=== PATIENT | female | born 1970 | race African-American/Black ===

== ENCOUNTER → 2019-03-07 08:21 | Outpatient (CLI) | payer OTHER, SELFPAY ==
[2019-02-27 14:40] VITALS: BMI 26.2
--- NOTE | 2019-03-07 08:45 | CT_ITS ---
STUDY: CT MAXILLOFACIAL SINUSES REASON FOR EXAM: Female, 48 years old. Sinus congestion. RADIATION DOSAGE (If Supplied By Facility): CTDIvol = ( 33.06 ) mGy, DLP = ( 788.40 ) mGycm TECHNIQUE: The patient was scanned in a multi detector CT scanner. High resolution axial imaging was performed without the administration of intravenous contrast material. Sagittal and coronal images were reconstructed. Individualized dose optimization techniques were used for this CT. COMPARISON: None. FINDINGS: FRONTAL SINUSES: Opacification of the left frontal sinus. ETHMOIDAL SINUSES: Opacification of the left ethmoid sinus with the erosion of the bony septation. MAXILLARY SINUSES: Complete opacification of the left maxillary sinus with the erosion of the medial wall of the sinus as well as the lateral wall. Mucosal thickening of the left maxillary sinus. SPHENOIDAL SINUSES: Opacification of the left sphenoid sinus. Opacification of the left nasal cavity. This extends posteriorly into the nasopharynx with the compromise of the airway. Normal bilateral middle turbinates. There is hypertrophy of the right inferior nasal turbinate. Normal midline nasal septum. There is patency of the bilateral nasal airways. The visualized osseous structures are normal. The visualized bilateral orbital contents are normal. CT/Sinus/Facial Bone IMPRESSION: Opacification of the left frontal, sphenoid, ethmoid and maxillary sinuses with a soft tissue opacification of the left nasal fossa. The soft tissue density in the left nasal fossa extends posteriorly with narrowing of the nasopharynx. Mild degree of mucosal thickening of the right maxillary sinus and the hypertrophy of the right inferior turbinate. Electronically Signed: Cole Rodriguez, at 10:04 EDT , Service support ,
[2019-03-07 09:14] LABS: Absolute Lymphocyte Count 1.35 X10^3/uL (0.83-4.51); Absolute Neutrophil Count 3.6 X10^3/uL (2.0-7.7); Basophil# 0.09 X10^3/uL; Basophil% 1.6 % (0-1); Eosinophil# 0.09 X10^3/uL; Eosinophils% 1.6 % (0-5); Hematocrit 37.1 % (37-47); Lymphocyte # 1.35 X10^3/ul (4.0); Lymphocyte % 24.4 % (19-41); Mean Corp Hgb Conc 29.6 g/dL (32-36); Mean Corpuscular Hgb 24.2 pg (27.0-32.0); Mean Corpuscular Volume 81.5 fL (81-99); Mean Platelet Vol. 10.1 fl (6.2-12.0); Monocyte# 0.37 X10^3/uL; Monocyte% 6.7 % (0-10); NRBC Flagged by Analyzer 0 % (0-5); Neutrophil # 3.62 X10^3/uL (2.7-7.7); Neutrophil % 65.3 % (47-70); Platelet Count 310 K/mm3 (150-450); RBC Distribution Width CV 13.6 % (11.6-14.6); RBC Distribution Width SD 40.3 fl (35.1-43.9); Red Blood Count 4.55 M/mm3 (4.2-5.4); White Blood Count 5.5 K/mm3 (4.4-11.0)
[2019-03-07 09:20] LABS: Internal QC Validated? YES +Cl - CLEAR BKGD; Pregnancy, Urine Negative Negative
[2019-03-07 09:46] LABS: Anion Gap 7 (5-15); BUN 8 mg/dL (7-18); BUN/Creat Ratio 9.6 RATIO (10-20); Calcium,Total 8.4 mg/dL (8.5-10.1); Chloride 103 mmol/L (98-107); Creatinine, Serum 0.83 mg/dL (0.55-1.02); EST Glomerular Filtration Rate 78 mL/min (>60); Est Glom Filt Rate - Afr Amer 95 mL/min (>60); Glucose 333 mg/dL (74-106); Potassium 4.2 mmol/L (3.5-5.1); Sodium Level 134 mmol/L (136-145)
--- NOTE | 2019-03-23 13:24 | MRI_ITS ---
STUDY: MRI ORBITS WITH AND WITHOUT CONTRAST REASON FOR EXAM: Female, 48 years old. Malignant melanoma nasal cavity. Biopsy 2 weeks ago TECHNIQUE: Standardized fat and water weighted pulse sequences were obtained in all 3 orthogonal planes, pre-and post contrast administration. IV Dotarem 15 was administered for the contrast portion of the examination. COMPARISON: None. FINDINGS: There appears to have been a median antrectomy on the left. The left nasal airway now appears relatively clear compared to the previous exam. There is improved aeration of the left maxillary sinus. There are still heterogeneous lobulated complex cystic collections along the left lateral maxillary sinus. This extends to the orbital apex and appears to envelop the cavernous carotid artery. There is avid peripheral enhancement. Fluid is noted within the left frontal and ethmoid air cells. Normal bilateral globes. Normal bilateral optic nerve sheath complexes and optic nerves. Normal bilateral intraconal and extraconal spaces. Normal bilateral extraocular muscles. Normal optic chiasm and post-chiasmatic tracts. Normal sella turcica, pituitary gland, infundibular stalk, and hypothalamus. Normal bilateral cavernous sinuses. Normal tectal plate and pineal gland. Normal flow voids within the major intracranial circulation suggesting patency by spin echo criteria. Normal size of the ventricles and extra-axial spaces for the patient's age. Normal white matter tracts of the supratentorial brain. Normal bilateral basal ganglia. Normal thalami. There is no extra-axial fluid accumulation. Normal midbrain, miranda and medulla. Normal cerebellum. Normal basal cisterns. MRI/Orbit Face Neck W/WO Contrast IMPRESSION: Apparent interval debulking of left maxillary and sinonasal mass. Residual tumor is not excluded. Left frontal and ethmoidal sinusitis. Electronically Signed: David Thompson MD at 17:21 EDT , Service support ,
--- NOTE | 2019-03-23 13:24 | MRI_ITS ---
STUDY: MRI BRAIN WITH AND WITHOUT CONTRAST REASON FOR EXAM: Female, 48 years old. Malignant melanoma TECHNIQUE: Standardized multiplanar fat and water weighted pulse sequences were obtained. IV Dotarem 15 was administered for the contrast portion of the examination. COMPARISON: None. FINDINGS: Normal size of the ventricles and extra-axial spaces for the patient's age. Normal white matter tracts of the supratentorial brain. There is no evidence for recent intracranial ischemia or other cause of cytotoxic edema on diffusion weighted imaging (DWI). Normal bilateral basal ganglia. Normal thalami. There is no extra-axial fluid accumulation. Normal flow voids within the major intracranial circulation suggesting patency by spin echo criteria. Normal venous enhancement. There is no enhancing intra-axial or extra-axial abnormality. Normal sella turcica, pituitary gland, infundibular stalk, optic chiasm and hypothalamus. Normal tectal plate and pineal gland. Normal midbrain, miranda and medulla. Normal cerebellum. Normal basal cisterns. Normal bilateral temporal bones. Normal bilateral internal auditory canals. No demonstrated orbital abnormality, within the constraints of a routine brain study. Left median antrectomy. Septated cystic changes and enhancement with mucosal thickening left lateral maxillary wall. Fluid left frontal and the ethmoid air cells. Normal calvarium and skull base. Normal visualized soft tissue structures. Normal visualized upper cervical spine. MRI/Brain W/WO Contrast IMPRESSION: Left-sided sinusitis and median antrectomy left maxillary sinus. Otherwise no intracranial disease. Electronically Signed: David Thompson MD at 21:24 EDT , Service support ,
== END ==
LOC: CT 08:29
PROVIDERS: Family Provider Otolaryngology; PCP Otolaryngology; Referring Provider Otolaryngology; Visit Provider Otolaryngology
DX: R22.0 Localized swelling, mass and lump, head (principal)
CPT/HCPCS: 36415; 70486; 80048; 81025; 83036; 85025

== ENCOUNTER 2019-03-10 07:30 | Day surgery (SDC) | payer OTHER, SELFPAY ==
[2019-02-27 14:40] VITALS: BMI 26.2
[2019-03-10] VITALS (11 sets, daily range): BP systolic 105–121; BP diastolic 69–90; PULSE 62–90; RESP 16–18; TEMP 36.1–36.6; O2SAT 99–100; BMI 28.0
--- NOTE | 2019-03-10 | IMM_PTH ---
PATIENT: CELIO BELL LOC: [facility] [place] U#:[id number] AGE/SX: 48/F ROOM: RE03/10/[address]: Dr. Archie Mg MD : 1970 BED: DIS: 03/10/2019 SPEC #: [id number] RECD: 03/13/19 11:47 STATUS: ANNIKA REQ #: [id number] DIANA: 03/10/19 00:[address]: Archie Mg DEPT: IMMUNOHISTOCHEMISTRY RECD BY: Elaine Man ENTERED: 03/13/19 11:49 SP TYPE: IMMUNO OTHR DR: No Primary Care Phys Tissues: B - Maxilla, NOS Procedures: CD45 (add) CK7 (add) Vimentin (add) Pankeratin (initial) MELAN-A (add) S-100 (add) PHYSICIAN & INSTITUTION [place] [address] SPECIMEN INFORMATION: Tissue Source: B - Left sinus contents, biopsy Clinical Info: Mass of nasal sinus; chronic sinusitis; nasal cavit disorder Specimen Number: [id number] CPT code: 35034, 74900 x5 METHODOLOGY: Deparaffinized sections of prefer/formalin-fixed tissue or PAP/DQ stained slides are incubated with monoclonal/polyclonal antibodies/oligonucleotide probes. Localization is made via biotin free immunoperoxidase method. Appropriate controls are performed and reacted as expected. Results on target cell population are indicated in the following table: RESULTS: ANTIBODY / CLONE RESULT Block B3 AE1-3 (AE1/AE3/PCK26) negative CK7 (OV-TL12/30) negative Vimentin (V9) positive Melan A (A103) positive S-100 (4C4.9) positive, focal CD45 (RP2/18) negative These tests were developed and their performance characteristics determined by [facility]. They may not have been cleared or approved by the U.S. Food and Drug Administration. The FDA has determined that such clearance or approval is not necessary. INTERPRETATION: B. Left sinus contents, biopsy: Consistent with malignant melanoma. This case has been reviewed in consultation with Dr. Aiken who concurs with the above diagnosis. SJ:tian 03/13/19
[2019-03-10 08:02] LABS: Internal QC Validated? YES +Cl - CLEAR BKGD; Pregnancy, Urine Negative Negative
[2019-03-10 08:46] LABS: Bedside Glucose 177 mg/dL (70-110)
[2019-03-10] MEDS: Lactated Ringers 1,000 ML 100 ML IV (08:48)
--- NOTE | 2019-03-10 09:15 | MASS_PTH ---
PATIENT: CELIO BELL LOC: [facility] [place] U#:[id number] AGE/SX: 48/F ROOM: RE03/10/[address]: Dr. Archie Mg MD : 1970 BED: DIS: 03/10/2019 SPEC #: [id number] RECD: 03/10/19 10:19 STATUS: ANNIKA REMable #: [id number] DIANA: 03/10/19 09:[address]: Archie Mg DEPT: SURGICAL PATHOLOGY RECD BY: Elaine Man ENTERED: 03/10/19 11:01 SP TYPE: Mass OTHR DR: Marielena Primary Care Phys Tissues: A - Maxilla, NOS B - Maxilla, NOS C - Maxilla, NOS Procedures: Frozen Section (charge) Surgery Specimen Level IV HEADER OPERATION: Endoscopic nasal sinus with left maxillary antrostomy PRE-OP DIAGNOSIS: Mass of nasal sinus; chronic sinusitis; nasal cavity disorder TISSUE SUBMITTED: A - Mass of left maxillary sinus for frozen section at 1012, B - Left sinus contents, C - Right nasal cavity tissue FROZEN SECTION DIAGNOSIS A. Mass of left maxillary sinus, biopsy: Poorly differentiated blue cell neoplasm. AM:tian 03/10/19 MICROSCOPIC DIAGNOSIS A. Mass of left maxillary sinus, biopsy: Poorly differentiated malignant neoplasm, consistent with malignant melanoma B. Left sinus contents: Consistent with malignant melanoma. See comment. C. Right nasal cavity tissue, biopsy: Fragments of respiratory mucosal tissue with mild chronic inflammation. SJ:tian 03/13/19 COMMENT B. Immunohistochemistry ([id number]) supports the above diagnosis. The specimen also shows fragments of bone. The tumor also invades into the bone. Molecular studies on the tumor can be performed if clinically indicated. Please notify the laboratory if they are needed. Flow cytometry study from [facility] shows insufficient viable and/or hematopoietic cells present. The complete report is viewable in patient's EMR. Correlation with clinical, radiologic findings and appropriate follow up are necessary. This case is discussed with Dr. Mg on 03/13/19. Case has been reviewed in consultation with Dr. Aiken who concurs with the above diagnosis. IDC:AM MICROSCOPIC DESCRIPTION Slides are reviewed. GROSS DESCRIPTION A - Received fresh for frozen section consultation labeled with the patient's name is a specimen designated mass of left maxillary sinus. The specimen consists of a reddish-alas fragment of soft tissue measuring 2 x 1.5 x 0.5 cm. Chief Radiology section is submitted for frozen section consultation. Chief Radiology portion is submitted for flow cytometric analysis. The remainder of the specimen is submitted in one more cassette (#2) for permanent section. / AM: 03/10/19 B -Received in fixative is one container labeled with the patient's name and designated left sinus contents. The specimen consists of multiple irregular and foamy fragments of red-alas soft tissue that in aggregate measure 15 x 3 x 3 cm. Chief Radiology portions are submitted in five cassettes. / AM: 03/10/19 C Received in fixative is one container labeled with the patient's name and designated right nasal cavity tissue. The specimen consists of multiple irregular fragments of light alas soft tissue that in aggregate measure 1.2 x 0.3 x 0.1 cm. The specimen is totally submitted in one cassette. / AM: 03/10/19 TC:0 [facility]: 04272 x3, 24014 ADDENDUM ADDENDUM ADDENDUM ADDENDUM ADDENDUM ADDENDUM 03/30/2019 10:37 ADDENDUM 03/30/2019 10:37 ADDENDUM 03/30/2019 10:37 ADDENDUM 03/30/2019 10:37 ADDENDUM 03/30/2019 10:37 BRAF ANALYSIS (MELANOMA) FROM [facility] RESULTS: No BRAF V600E or V600K mutations were detected in the provided specimen. Please see complete report in e-chart or EMR for complete details
[2019-03-10] MEDS: Oxymetazoline 0.05% 1 SPRAY SPRAY.BTL 15 SPRAY (09:54)
[2019-03-10] MEDS: Lidocaine 4% 50 ML Bottle (09:54)
--- NOTE | 2019-03-10 11:25 | PCM.OPRPT ---
Problem List (1) Localized swelling, mass, and lump of head Status: Acute (2) Chronic sinusitis Status: Chronic (3) Disease of nasal cavity and sinuses Status: Acute Report of Operation Date of Procedure: 03/10/19 Pre-Operative Diagnosis: Space occupying mass of left nasal cavity, chronic sinusitis Post-Operative Diagnosis: Same Surgery/Procedure Performed:: Left endoscopic maxillary antrostomy with removal of tissue, total ethmoidectomy with removal of tissue, sphenoidotomy with removal of tissue, Right endoscopic debridement of scar band and biopsy, sinus navigation Description of Surgical Findings:: Tasia is a 48-year-old female who presents for evaluation of chronic obstruction of the left nasal passage and numbness of the left cheek. She reports a history of prior excision of a nasal lesion in [facility] approximately 3 months ago after which time she had rapidly developed recurrent nasal obstruction on that side. MRI at that time showed a mass within the nasal cavity interpreted as inverting papilloma with mucus trapping in the maxillary ethmoid and sphenoid sinuses. Follow-up CT scan showed an invasive mass involving the anterior bony wall of the maxilla and space-occupying lesion of the maxillary ethmoid and sphenoid sinuses filling the nasal cavity on the left side. She was counseled regarding the above procedure for both alleviation of her obstruction complaints and biopsy for definitive evaluation and possible endoscopic resection and was eager to proceed. The risks, alternatives, potential complications, and benefits were discussed at length and any questions answered to the patient and/or caregiver's satisfaction. Witnessed informed consent was obtained in the office, and the patient and/or caregiver was agreeable to proceed. Procedure went as follows: The patient was identified in the preoperative holding and brought to the operating room, was placed under general anesthesia and intubated. When appropriate anesthesia was obtained, the navigational head gear was placed and confirmed to be operational in accordance with the car hostler's directions. Pledgets soaked in a 50-50 mixture of oxymetazoline and 4% topical lidocaine were placed to decongest the nasal mucosa. These were then removed and beginning on the left side using a 0? endoscope the nasal cavity examined. The insertion of the middle turbinate and uncinate process was then injected with 1% lidocaine with 100,000 epinephrine for a total of 2 mL, and a similar injection was then carried on the contralateral side. Upon returning to the left side, a large friable purplish mass was noted. This was then explored which is found to be arising from the lateral nasal wall and attached posteriorly. This was then debrided with the microdebrider to allow the vascular supply posteriorly to be additionally injected with 1% lidocaine with 100,000 epinephrine and controlled with suction cautery. This allowed for further visualization of the involvement of the maxillary sinus. More centrally the lesion was noted to be deeply melanotic and invaded through the bony medial wall inferior to the inferior nasal turbinate which was partially eroded by the mass. This was then resected with the use of through-cutting instruments. This allowed for the bulk of the mass to then be delivered from the maxillary sinus. The middle turbinate was noted to be completely obliterated by the mass. The remaining ethmoid cells were then removed taking the involved tumor with the specimen. Under navigational guidance the sphenoid sinus ostia was identified and noted to be filled with entrapped mucus due to the lesion which was invading the sinus ostia. This was then widely debrided with the microdebrider or intensely inflamed mucosa was noted. Hemostasis then achieved with application of topical oxymetazoline soaked pledgets followed by suction electrocautery. Using a 30 degree endoscope the maxillary sinus cavity was then examined. There is noted to be additional a lesion extending from the medial wall down towards the floor which was removed with a series of curved instruments. Frozen section evaluation of the mass showed a poorly differentiated blue cell tumor without further delineation. Clinically the lesion was highly suspicious and consistent with a mucosal melanoma. There were noted to be multiple sites along the posterior nasopharyngeal mucosa and septal mucosa of rounded purpleish raised lesions suggesting mucosal metastases. These were obliterated with suction cautery. During debulking the mass was noted to fill the nasopharynx posteriorly and this was additionally removed and sent as surgical specimen. This resulted in relief of the obstruction of the nasal cavity and removal of all visible mass. Attention was then turned to the right side where there is noted to be a broad soft tissue adhesion of the middle turbinate to the nasal septum. This was then sharply excised and sent as specimen as this was suspicious for possible tumor involvement to the contralateral side. Examination of the nasal passage revealed no other significant abnormalities and hemostasis was achieved with an oxymetazoline soaked pledget. FloSeal hemostatic agent was then placed on the left for hemostasis after removal of the pledgets. An NG tube was then placed to decompress the stomach and the patient returned to anesthesia, revived and extubated having tolerated the procedure well. Type of Anesthesia:: General Anesthesiologist: Brice Mccarthy Special Medications: none Specimen's removed: left sinus mass Drains: none Estimated Blood Loss (mL): 1000 mL Fluids Replaced: 2000 mL Grafts/Implants Used: none - Complications none - Admit VTE Documentation VTE Present on Admission: No VTE Mechan Device Prophylaxis: SCD's VTE Pharm Prophylaxis ordered?: No
--- NOTE | 2019-03-10 11:37 | DCINST_ITS ---
- Discharge Diagnoses Current Active Problems: Current Active and Chronic Problems (Last Updated 02/27/19 @ 14:42 by Elma Terrazas) Localized swelling, mass, and lump of head (Acute) Chronic sinusitis (Chronic) Disease of nasal cavity and sinuses (Acute) You will use the following diet at home:: Calorie/Carbohydrate Controlled (specify 1200, 1400, etc) Discharge Activity: Return to Normal Activity, May not drive while taking narcotic pain medications. Call your doctor if your incision/area has: Sudden Increased Bleeding Call your doctor if you observe: Fever of 101 or Higher, Uncontrolled pain Allergies/Adverse Reactions: Allergies No Known Allergies Allergy (Unverified 03/09/19 13:10) Medications to take at Discharge Insulin Detemir [Levemir (BKC)] 20 units SUBCUT DAILY 03/09/19 Metformin HCl 1,000 mg PO BID 03/09/19 Orders to be completed after discharge: Hemoglobin A1c Time Frame: 03/09/19, Facility: [facility], Location: Laboratory Primary Care Physician: Care Physician,No Primary [Primary Care Provider] - Test Results: Test results from this visit will be discussed in further detail at your follow- up appointment, if applicable. Please Follow Up With: Archie Mg MD When: 2 weeks
[2019-03-10 12:31] LABS: Bedside Glucose 130 mg/dL (70-110)
== END 2019-03-10 13:43 | disposition home or self-care (01) ==
LOC: SDC 07:31 → AC 07:32
PROVIDERS: Referring Provider Otolaryngology; Visit Provider Otolaryngology
PROC: (CPT 31237; principal; 2019-03-10 08:45)
DX: J32.0 Chronic maxillary sinusitis (principal); J34.89 Other specified disorders of nose and nasal sinuses; E11.9 Type 2 diabetes mellitus without complications; Z79.4 Long term (current) use of insulin
CPT/HCPCS: 00160; 31237; 31259; 31267; 81025; 82962; 88305; 88331; 88341; 88342; J7120; J2405

== ENCOUNTER → 2019-03-23 13:05 | Outpatient (CLI) | payer OTHER, SELFPAY ==
[2019-03-20 14:37] VITALS: BMI 26.5
== END ==
LOC: MRI 13:07
PROVIDERS: Referring Provider Internal Medicine Hematology & Oncology; Visit Provider Internal Medicine Hematology & Oncology
DX: J34.89 Other specified disorders of nose and nasal sinuses (principal)
CPT/HCPCS: 70543; 70553; A9575

== ENCOUNTER → 2019-04-21 09:25 | Outpatient (CLI) | payer OTHER, SELFPAY ==
[2019-04-06 13:55] VITALS: BMI 26.0
[2019-04-21 08:38] VITALS: BMI 27.0
[2019-04-21 10:37] LABS: Estradiol 89.3 pg/mL; Follicle Stimulating Hormone 7.2 mIU/mL; Free T3 2.1 pg/mL (2.18-3.98); Luteinizing Hormone 5.7 mIU/mL; Thyroid Stim Hormone (TSH) 0.67 uIU/mL (0.358-3.74)
[2019-04-24 16:22] LABS: Adrenocorticotropic Hormone 21.8 pg/mL (7.2-63.3); Insulin Like Growth Factor 109 ng/mL (57-195)
== END ==
PROVIDERS: Referring Provider Internal Medicine Endocrinology, Diabetes & Metabolism; Visit Provider Internal Medicine Endocrinology, Diabetes & Metabolism
DX: E23.7 Disorder of pituitary gland, unspecified (principal)
CPT/HCPCS: 36415; 82024; 82533; 82670; 83001; 83002; 84305; 84439; 84443; 84481

== ENCOUNTER 2019-04-25 13:28 | Outpatient (RCR) | payer OTHER, SELFPAY ==
[2019-04-06 13:55] VITALS: BMI 26.0
[2019-04-24 12:39] VITALS: BMI 26.6
[2019-04-25 12:03] VITALS: BMI 26.9
== END 2019-05-20 23:59 ==
LOC: NS 13:28
PROVIDERS: Visit Provider Student in an Organized Health Care Education/Training Program
DX: Z71.3 Dietary counseling and surveillance (principal); E11.9 Type 2 diabetes mellitus without complications; C30.0 Malignant neoplasm of nasal cavity
CPT/HCPCS: 97802; 97803

== ENCOUNTER 2019-06-02 14:00 | Outpatient (RCR) | payer OTHER, SELFPAY ==
[2019-04-06 13:05] VITALS: BMI 26.0
[2019-04-06 13:55] VITALS: BMI 26.0
[2019-04-21 08:38] VITALS: BMI 27.0
== END 2019-06-02 17:00 | disposition home or self-care (01) ==
LOC: SP 14:00
PROVIDERS: Referring Provider Student in an Organized Health Care Education/Training Program; Visit Provider Student in an Organized Health Care Education/Training Program
DX: C30.0 Malignant neoplasm of nasal cavity (principal)
CPT/HCPCS: 92526; 92610

== ENCOUNTER → 2019-08-29 11:20 | Outpatient (CLI) | payer OTHER, SELFPAY ==
[2019-04-06 13:55] VITALS: BMI 26.0
[2019-08-29 10:38] VITALS: BMI 23.1
[2019-08-29 12:09] LABS: Magnesium 1.9 mg/dL (1.6-2.6)
[2019-08-29 12:18] LABS: Anion Gap 4 (5-15); BUN 10 mg/dL (7-18); Chloride 107 mmol/L (98-107); Creatinine, Serum 0.77 mg/dL (0.55-1.02); EST Glomerular Filtration Rate 86 mL/min (>60); Est Glom Filt Rate - Afr Amer 104 mL/min (>60); Follicle Stimulating Hormone 68.6 mIU/mL; Free T3 2.1 pg/mL (2.18-3.98); Glucose 97 mg/dL (74-106); Luteinizing Hormone 42.6 mIU/mL; Potassium 4.4 mmol/L (3.5-5.1); Sodium Level 140 mmol/L (136-145); T4 Free Direct 1.05 ng/dL (0.76-1.46); Thyroid Stim Hormone (TSH) 0.34 uIU/mL (0.358-3.74)
[2019-08-30 19:49] LABS: Adrenocorticotropic Hormone 14.7 pg/mL (7.2-63.3); Somatomedin C 130 ng/mL (57-195)
== END ==
PROVIDERS: Internal Medicine Hematology & Oncology; Referring Provider Internal Medicine Endocrinology, Diabetes & Metabolism; Visit Provider Internal Medicine Endocrinology, Diabetes & Metabolism
DX: C30.0 Malignant neoplasm of nasal cavity (principal); D50.9 Iron deficiency anemia, unspecified; Z79.899 Other long term (current) drug therapy; E23.7 Disorder of pituitary gland, unspecified
CPT/HCPCS: 36415; 80048; 82024; 82533; 83001; 83002; 83735; 84305; 84439; 84443; 84481

== ENCOUNTER → 2019-09-01 09:11 | Outpatient (CLI) | payer OTHER, SELFPAY ==
[2019-04-06 13:55] VITALS: BMI 26.0
[2019-08-29 12:48] VITALS: BMI 23.1
[2019-08-29 15:41] VITALS: BMI 23.1
--- NOTE | 2019-09-01 09:28 | BI_ITS ---
MAMMOGRAPHY - BILATERAL DIAGNOSTIC REASON FOR EXAM: Female, 48 years old. Right breast lump. History of melanoma. PERTINENT HISTORY: Non-contributory. TECHNIQUE: Digital bilateral breast winston (3D mammographic acquisition) in the CC and MLO projections. 2-D mediolateral oblique (MLO) and craniocaudad (CC) views of both breasts were obtained. CAD: Full Field Digital Mammography with Computer Added Detection was performed. COMPARISON: None. Baseline examination. FINDINGS: Breast Composition: The breasts are heterogeneously dense, which may obscure small masses. There is a 1.8 cm x 1.6 cm nodule in the axillary region of the right breast. It is also evidence of a 1.7 cm x 1.9 cm nodule in the deep lateral aspect of the right breast. These correspond to the palpable abnormality. I also suspect a 2 cm right retroareolar nodule. Correlation with ultrasound is recommended. No other significant abnormalities are identified. BI/DIAG MAMM W/CAD, BILAT IMPRESSION: The palpable abnormality corresponds to 2 nodules in the upper outer aspect of the right breast and axillary region as described. Questionable left retroareolar nodule. Correlation with ultrasound is recommended. ASSESSMENT CATEGORY: BIRADS Category 0: Incomplete. Need additional imaging evaluation. A letter regarding these results will be sent to the patient by the facility within 30 days. Approximately 10% of breast cancers are not detected by mammography. A normal mammogram should not delay biopsy of a clinically suspicious abnormality. Electronically Signed: Cole Rodriguez, at 12:24 EDT , Service support ,
--- NOTE | 2019-09-01 11:36 | US_ITS ---
STUDY: ULTRASOUND BREAST - RIGHT REASON FOR EXAM: Female, 48 years old. Palpable lump in the right breast. TECHNIQUE: Axial and longitudinal images of the RIGHT breast were performed with a high resolution ultrasound transducer. # OF IMAGES: 97 COMPARISON: Comparison is made with prior mammogram done earlier in the day. FINDINGS: RIGHT Breast: There is a 2.1 cm x 1.9 signed by 1 cm complex solid and cystic mass at the 9:00 position of the breast at 4 cm from nipple. This also evidence of a complex solid and cystic nodule measuring 9 mm x 8 mm x 7 mm at the 10:00 of the breast at 4 cm from nipple. There is a 1.8 cm x 1.7 cm x 1.5 cm complex solid and cystic mass at the 11:00 position in the breast at 8 summary from nipple. A similar pattern complex solid and cystic mass measuring 10 mm x 9 mm x 6 mm is seen at the 11:00 position breast at 2 cm from the nipple. IMPRESSION: For complex solid and cystic masses at the 9:00, 10 and 11:00 position the right breast. Biopsy is recommended. ASSESSMENT CATEGORY: BIRADS Category 5: Highly Suggestive of Malignancy - Appropriate Action Should Be Taken. A letter regarding these results will be sent to the patient by the facility within 30 days. Electronically Signed: Cole Rodriguez, at 12:43 EDT , Service support , STUDY: ULTRASOUND BREAST - LEFT REASON FOR EXAM: Female, 48 years old. Abnormal mammogram. TECHNIQUE: Axial and longitudinal images of the LEFT breast were performed with a high resolution ultrasound transducer. # OF IMAGES: 97 COMPARISON: Comparison is made with prior mammogram done earlier today. FINDINGS: LEFT Breast: The retroareolar region of the breast was examined by ultrasound. No solid or cystic mass lesion is seen. There is evidence of dilated retroareolar ducts. US/Breast Limited Unilateral IMPRESSION: Mildly dilated retroareolar ducts. ASSESSMENT CATEGORY: BIRADS Category 2: Benign. A letter regarding these results will be sent to the patient by the facility within 30 days. Electronically Signed: Cole Rodriguez, at 12:44 EDT , Service support ,
== END ==
DX: N64.89 Other specified disorders of breast (principal)
CPT/HCPCS: 76642; 77062; 77066; G0279

== ENCOUNTER → 2019-09-07 | Outpatient (CLI) | payer OTHER, SELFPAY ==
[2019-04-06 13:55] VITALS: BMI 26.0
--- NOTE | 2019-09-07 | IMM_PTH ---
PATIENT: CELIO BELL LOC: [facility] U#:[id number] AGE/SX: 48/F ROOM: RE09/07/[address]: Dr. Jass Rodriguez MD : 1970 BED: DIS: 09/07/2019 SPEC #: [id number] RECD: 09/08/19 10:57 STATUS: ANNIKA REQ #: [id number] DIANA: 09/07/19 00:[address]: Jass Rodriguez DEPT: IMMUNOHISTOCHEMISTRY RECD BY: Elaine Man ENTERED: 09/08/19 10:58 SP TYPE: IMMUNO OTHR DR: No Primary Care Phys Tissues: A - Right breast, NOS Procedures: Mammoglobin (initial) CD45 (add) CK14 (add) KI-67 (add) MART1 (add) P53 (add) Vimentin (add) Pankeratin (add) GATA3 (add) P40 (add) S-100 (add) PHYSICIAN & INSTITUTION [address] [address] SPECIMEN INFORMATION: Tissue Source: A - Right breast tissue at 9 o'clock Clinical Info: Abnormal right breast ultrasound Specimen Number: [id number] CPT code: 70021, 03835 x10 METHODOLOGY: Deparaffinized sections of prefer/formalin-fixed tissue or PAP/DQ stained slides are incubated with monoclonal/polyclonal antibodies/oligonucleotide probes. Localization is made via biotin free immunoperoxidase method. Appropriate controls are performed and reacted as expected. Results on target cell population are indicated in the following table: RESULTS: ANTIBODY / CLONE RESULT Block A Mammaglobin (31A5) negative GATA3 (L50-823) negative AE1-3 (AE1/AE3/PCK26) negative CD45 (RP2/18) negative Vimentin (V9) positive, strong intensity S-100 (4C4.9) positive, focal, dim intensity MART-1 (A-103) positive, strong intensity CK14 (LL002) negative P40 (BC28) negative P53 (DO-7) positive, 40%, variable intensity Ki-67 (30-9) positive, 80% These tests were developed and their performance characteristics determined by [facility]. They may not have been cleared or approved by the U.S. Food and Drug Administration. The FDA has determined that such clearance or approval is not necessary. The above immunohistochemical/dualISH markers are ordered and reviewed by the Pathologist. INTERPRETATION: A. Right breast tissue at 9 o'clock, biopsy: Consistent with metastatic melanoma. AM:tian 09/11/19 Case has been reviewed in consultation with Dr. Landaverde who concurs with the above diagnosis. IDC:ERIN
[2019-09-07 09:41] VITALS: BMI 24.1
--- NOTE | 2019-09-07 09:55 | BRBX_PTH ---
PATIENT: CELIO BELL LOC: [facility] U#:[id number] AGE/SX: 48/F ROOM: RE09/07/[address]: Dr. Jass Rodriguez MD : 1970 BED: DIS: 09/07/2019 SPEC #: [id number] RECD: 09/07/19 10:48 STATUS: ANNIKA REMable #: [id number] DIANA: 09/07/19 09:[address]: Jass Rodriguez DEPT: SURGICAL PATHOLOGY RECD BY: Francisco Javier Palacios ENTERED: 09/07/19 11:15 SP TYPE: BREAST BX OTHR DR: No Primary Care Phys Tissues: A - Right breast, NOS B - Right breast, NOS Procedures: Surgery Specimen Level IV HEADER OPERATION: Ultrasound-guided right breast biopsy x2 PRE-OP DIAGNOSIS: Abnormal right breast ultrasound TISSUE SUBMITTED: A - Right breast tissue at 9 o'clock, B - Right breast tissue at 11 o'clock MICROSCOPIC DIAGNOSIS A. Right breast at 9 o'clock, ultrasound-guided core biopsy: Consistent with metastatic malignant melanoma. See comment. B. Right breast at 11 o'clock, ultrasound-guided core biopsy: Consistent with metastatic malignant melanoma. AM:tian 09/08/19 COMMENT Immunohistochemistry ([id number]) supports the above diagnosis. Reference is made to the patient's previous ([id number]) left maxillary sinus biopsy in which malignant melanoma was identified. Case has been reviewed in consultation with Dr. Landaverde who concurs with the above diagnosis. IDC:SJ MICROSCOPIC DESCRIPTION Slides are reviewed. GROSS DESCRIPTION A - Received in fixative is one container labeled with the patient's name and designated right breast at 9 o'clock. The specimen consists of multiple fragments of alas-yellow fibroadipose tissue mixed with blood clot that in aggregate measure 2 x 1 x 0.1 cm. The entire specimen is submitted in one cassette. B - Received in fixative is one container labeled with the patient's name and designated right breast at 11 o'clock. The specimen consists of multiple elongated fragments of alas-yellow fibroadipose tissue that in aggregate measure 1.5 x 0.8 x 0.1 cm. The entire specimen is submitted in one cassette. / SJ:tian 09/07/19 TC:0 [facility]: [id number] x2 ADDENDUM ADDENDUM ADDENDUM ADDENDUM ADDENDUM ADDENDUM ADDENDUM 10/04/2019 09:41 ADDENDUM 10/04/2019 09:41 ADDENDUM 10/04/2019 09:41 ADDENDUM 10/04/2019 09:41 ADDENDUM 10/04/2019 09:41 KIT MUTATION REPORT FROM [facility] A. KIT MUTATION, MELANOMA INTERPRETATION: Not detected. B. KIT MUTATION, MELANOMA INTERPRETATION: Not detected. Please see complete report in e-chart or EMR for further details
== END | disposition home or self-care (01) ==
LOC: LABSPEC 10:49
PROVIDERS: Referring Provider Surgery; Visit Provider Surgery
DX: R92.8 Other abnormal and inconclusive findings on diagnostic imaging of breast (principal)
CPT/HCPCS: 88305; 88341; 88342

== ENCOUNTER → 2019-09-25 07:26 | Outpatient (CLI) | payer OTHER, SELFPAY ==
[2019-04-06 13:55] VITALS: BMI 26.0
[2019-09-13 13:35] VITALS: BMI 22.8
--- NOTE | 2019-09-25 07:28 | MRI_ITS ---
STUDY: MRI BRAIN WITH AND WITHOUT CONTRAST REASON FOR EXAM: Female, 48 years old. h/o melanoma, restaging, NO COMPLAINTS TECHNIQUE: Standardized multiplanar fat and water weighted pulse sequences were obtained. 13 mL of IV Dotarem was administered for the contrast portion of the examination. COMPARISON: MRI brain with and without contrast 09/07/2018. FINDINGS: No restricted diffusion to suspect acute or subacute ischemic infarct. No focal signal abnormalities throughout the brain parenchyma. Normal size of the ventricles and extra-axial spaces for the patient''s age. Normal white matter tracts of the supratentorial brain. Normal bilateral basal ganglia. Normal thalami. There is no extra-axial fluid accumulation. Normal flow voids within the major intracranial circulation suggesting patency by spin echo criteria. Normal venous enhancement. There is no enhancing intra-axial or extra-axial abnormality. Normal sella turcica, pituitary gland, infundibular stalk, optic chiasm and hypothalamus. Normal tectal plate and pineal gland. Normal midbrain, miranda and medulla. Normal cerebellum. Normal basal cisterns. Normal bilateral temporal bones. Normal bilateral internal auditory canals. No demonstrated orbital abnormality, within the constraints of a routine brain study. Pronounced mucosal thickening of the residual left ethmoid sinus and left frontal sinus are unchanged. Surgical defect in the medial wall of the left macros sinuses and pronounced mucosal thickening and/or granulation tissue in the left maxillary antral wall. Normal calvarium and skull base. Normal visualized soft tissue structures. Normal visualized upper cervical spine. MRI/Brain W/WO Contrast IMPRESSION: 1. Normal MRI brain with and without contrast without suspicious intracranial metastatic disease. 2. Pronounced chronic left frontal sinusitis and pronounced chronic sinusitis of the residual left ethmoid sinus. These are unchanged. 3. Postsurgical absence in the medial wall of the left maxillary sinus with pronounced mucosal thickening and/or granulation tissue in the remaining hammonds of the left maxillary sinus are unchanged. 4. No significant interval change when compared to 03/23/2019. Electronically Signed: Livan Salguero MD at 9:13 EDT , Service support ,
== END ==
PROVIDERS: Referring Provider Internal Medicine Hematology & Oncology; Visit Provider Internal Medicine Hematology & Oncology
DX: C30.0 Malignant neoplasm of nasal cavity (principal); C79.9 Secondary malignant neoplasm of unspecified site
CPT/HCPCS: 70553; A9575